=== PATIENT | male | born 1940 | race Caucasian/White ===

== ENCOUNTER → 2016-08-21 | Outpatient (CLI) | payer OTHER ==
--- NOTE | 2016-08-21 12:53 | DX ---
Lumbar Spine, Two Views August 21, 2016 Indication: Pain. Evaluate for arthritis. Technique: Upright AP and lateral views. Comparison: None. Findings: Minimal levocurvature apex at L2 and 5 mm of retrolisthesis of L2 on L3. Large flowing ant erior syndesmophytes extend from T12 to L4. Severe degenerative disk disease is present at T11-T12 an d L5-S1. Mild-moderate degenerative disk disease is present at L2-L3, L3-L4, and L4-L5. Marked produc tive facet arthropathy extends from L2-L3 to L5-S1. No compression fracture, bone lesion, or pars def ect. Impression: 1. Moderate-severe multilevel degenerative disk and facet arthropathy. 2. No compression fracture or bone lesion.
== END ==
LOC: BMCIMAGING 11:05
PROVIDERS: ATTEND Internal Medicine Rheumatology
DX: M51.36 Other intervertebral disc degeneration, lumbar region (principal); M46.96 Unspecified inflammatory spondylopathy, lumbar region; M46.97 Unspecified inflammatory spondylopathy, lumbosacral region; M51.34 Other intervertebral disc degeneration, thoracic region; M51.37 Other intervertebral disc degeneration, lumbosacral region

== ENCOUNTER → 2018-04-26 | Outpatient (CLI) | payer OTHER, MEDICARE | LOC: BMCIMAGING 12:02 | PROVIDERS: ATTEND Family Medicine | DX: S92.415A Nondisplaced fracture of proximal phalanx of left great toe, initial encounter for closed fracture (principal) ==

== ENCOUNTER → 2018-08-27 | Outpatient (CLI) | payer OTHER, MEDICARE | LOC: BMCIMAGING 09:37 | PROVIDERS: ATTEND Podiatrist Foot & Ankle Surgery | DX: M19.071 Primary osteoarthritis, right ankle and foot (principal) ==